=== PATIENT | female | born 1995 | race Caucasian/White ===

== ENCOUNTER 2022-10-04 11:40 | Emergency (ER) | payer MEDICAID, SELFPAY ==
--- NOTE | ~2022-10-04 | XR_ITS ---
EXAMINATION: XR ANKLE, RIGHT CLINICAL INFORMATION: Question injury COMPARISON: None TECHNIQUE: AP, lateral, and mortise views of the right ankle. FINDINGS: No acute fractures are seen. The ankle mortise is congruent. Degenerative change along the mortise with osteophyte formation throughout. Small ankle joint effusion. The soft tissues are unremarkable. XR/XR ankle RT min 3V IMPRESSION: No acute fracture or malalignment. Small joint effusion. Degenerative change along the ankle mortise.
[2022-10-04 11:45] VITALS: BP 153/86; PULSE 126; RESP 18; TEMP 36.7; O2SAT 100; BMI 21.1
--- OUTSIDE RECORDS SUMMARY | 2022-10-04 12:23 | XMS_ITS | Continuity of Care Document ---
:1995 Author Organization [facility] Address [address] [place] [address]- Care Team Providers Name Role Phone Kimberley Cooper NP Primary Care Physician [phone] Encounter [facility] [id number] Date(s): 02/10/21 - 02/17/21 [facility] [address] [place] [id number]- Encounter Diagnosis ADHD (Discharge Diagnosis) - 02/10/21 Encounter to establish care (Discharge Diagnosis) - 02/10/21 Attending Physician: Kimberley Cooper NP Allergies, Adverse Reactions, Alerts Substance Reaction Severity Status NKA Active Medications Vyvanse = 40 mg, By Mouth, Daily in AM, 0 Refills, Maintenance, 02/10/21 9:53:00 EDT, Partial fill upon patient request if the prescription is for a schedule II opioid drug. Start Date: 02/10/21 Status: Ordered Problem List Condition Effective Dates Status Health Status Informant ADHD(Confirmed) Active Diagnosis Diagnosis Type Effective Dates Health Status Clinical In formant Service ADHD Discharge 02/10/21 Diagnosis Encounter to Discharge 02/10/21 establish care Diagnosis Social History Social History Type Response Smoking Status Never (less than 100 in life time) entered on: 02/10/21 Sex
--- OUTSIDE RECORDS SUMMARY | 2022-10-04 12:23 | XMS_ITS | Continuity of Care Document ---
:1995 [facility] Address [address] [id number]- Care Team Providers Name Role Phone Kenneth ALBARRAN, Kimberley Snatamaria Primary Care Physician [id number] Date(s): [facility]/10/21 [email or web address] [address] [place] [address]- Attending Physician: Latisha Valentin Admitting Physician: Latisha Valentin Referring Physician: AdmLatisha blanco Allergies, Adverse Reactions, Alerts Substance Reaction Severity Status NKA Active Medications Vyvanse = 40 mg, By Mouth, Daily in AM, 0 Refills, Maintenance, 02/10/21 9:53:00 EDT, Partial fill upon patient request if the prescription is for a schedule II opioid drug. Start Date: 02/10/21 Status: Ordered Problem List Condition Effective Dates Status Health Status Informant ADHD(Confirmed) Active Social History Social History Type Response Smoking Status Never (less than 100 in life time) entered on: 02/10/21 Sex
--- NOTE | 2022-10-04 12:42 | ED_ITS ---
HPI - Extremity Injury (Lower) General Chief Complaint: Extremity Injury, Lower Stated Complaint: R ankle swollen, in pain Time Seen by Provider: 10/04/22 12:27 Source: patient Mode of arrival: ambulatory (personal crutches) Limitations: physical limitation (personal crutches) History of Present Illness HPI Narrative: Pt is a 27 y/o female with history of shattered R ankle in 2011 with some hardware removed in 2012, cc right ankle pain that started yesterday morning without known cause while walking. 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 Pain is 3/10 on rest. She has limited range of motion at baseline and it remains unchanged and denies any popping, cracking, or hearing anything with the pain. She said if there is any pressure placed on the lateral part of the ankle, it causes discomfort so she has avoided splinting it. She has not taken anything for pain and is using her own very old crutches. MD complaint: ankle injury Onset (ago): day(s) (1) Injury: Right: ankle Place: work Severity: mild Severity scale (1-10): 3 Exacerbating factors: weight bearing Context: walking Other symptoms: none Related Data Previous Rx's Medication Instructions Recorded acetaminophen 300 mg-codeine 30 mg 1 tab PO Q8H PRN pain #14 tabs 10/04/22 tablet ibuprofen 600 mg tablet 600 mg PO Q6H PRN fever #14 tabs 10/04/22 Allergies Allergy/AdvReac Type Severity Reaction Status Date / Time No Known Allergies Allergy Verified 10/04/22 11:52 Review of Systems Review of Systems: Constitutional : No Weight loss, No Fever, No Chills, No Night Sweats, No Fatigue, No Malaise ENT/Mouth : No Hearing loss, No Ear Pain, No Nasal Congestion, No Sinus Pain, No Hoarseness, No sore throat, No Rhinorrhea, No Swallowing Difficulty Eyes: No Eye Pain, No Swelling, No Redness, No Foreign Body, No Discharge, No Vision Changes Cardiovascular : No Chest Pain, No SOB, No Dyspnea on Exertion, No Orthopnea, No Edema, No Palpitations Respiratory : No Cough, No Sputum, No Wheezing, No Smoke Exposure, No Dyspnea Gastrointestinal : No Nausea, No Vomiting, No Diarrhea, No Constipation, No abdominal Pain, No Hematochezia, No Melena Genitourinary : no irregular bleeding, No Dysuria, No Urinary Frequency, No Hematuria, No Urinary Incontinence, No Urgency, No Flank Pain, No Urinary Flow Changes, No Hesitancy Musculoskeletal : +R ankle pain/swelling, No other joint pain, No Myalgias Skin : No Skin Lesions, No rash Neuro : No Weakness, No Numbness, No Paresthesias, No Loss of Consciousness, No Dizziness, No Headache Psych : No Anxiety/Panic, No Depression, No SI/HI/AH/VH, No Social Issues, Heme/Lymph: No Bruising, No Bleeding,No Lymphadenopathy Endocrine : No Polyuria, No Polydipsia, No Temperature Intolerance Yes all other systems are reviewed and are negative [facility] Past Medical History Attestation statement: The following information was validated with the patient. Source: old records reviewed, obtained from family and nursing notes reviewed Social History Social History Advance Directives: No Physical Exam Vital Signs: Vital Signs: Last Vital Signs Temp 98.1 F 10/04/22 11:45 Pulse 126 H 10/04/22 11:45 Resp 18 10/04/22 11:45 BP 153/86 H 10/04/22 11:45 Pulse Ox 100 10/04/22 11:45 O2 Del Method 10/04/22 11:45 BMI result Body Mass Index 21.1 Vital signs reviewed. Blood pressure 153/86. Pulse 126. Respiration normal. Oxygen normal. Temperature normal. Appearance: Alert. Oriented X3. No acute distress. Head: Normal external exam. Normocephalic. Atraumatic. Eyes: PERRLA. EOMI. Conjunctiva and sclera normal. Eyelids normal. ENT: EAC normal. TM's Normal. Pharynx normal. Uvula midline. Moist mucous membranes. No lesions/ulcerations or masses noted on the tongue. Normal voice. No trismus noted. No drooling noted. No muffled voice noted. Neck: Normal inspection. Neck supple. FROM. No adenopathy. Thyroid Normal. No meningeal signs. CVS: Normal heart rate and rhythm. Heart sound normal. Pulses normal throughout. No murmurs/rales/gallops. Respiratory: No respiratory distress. Painless inspiration. Breath sounds normal. No wheezes/rales/rhonchi noted. Chest nontender. No accessory muscle usage noted or decreased air movement noted. Abdomen: Soft and nontender. Back: Full range of motion noted. Nontender. Skin: Skin warm and dry. Normal skin color. Normal skin turgor. No rashes/lesions/lacerations noted. Extremities: baseline right ankle larger than right with TTP to right lateral aspect malleolus with soft tissue swelling/joint effusion. Patient has full range of motion of the right ankle/foot joint. No obvious ligamentous or tendon injury noted. Otherwise all other Extremities exhibit normal range of motion with no swelling or edema. No pitting edema. No calf tenderness is noted. Neuro: Oriented X 3. No motor deficit. No sensory deficit. Reflexes normal. Normal steady gait. No focal neuro deficits noted. CN's II-XII intact bilatera lly? Vascular: + radial pulses. Normal cap refill. No cyanosis noted to upper extremity nails Medical Decision Making Medical Decision Making MDM Narrative: This 27-year-old female patient presents with right ankle and lateral pain mid calf pain, suspicious for sprain or possible tendonitis. Able to flex and extend without pain and does have baseline limited ROM. Considered but doubt tibial/fibular fractures, septic arthritis, other acute unstable fracture, compartment syndrome, or significant neurovascular compromise. Patient does not have any lower extremity edema or calf tenderness. Not consistent with DVT. Patient was noted to be tachycardic although reports she has anxiety and this usually happens when she is in a hospital. Plan: Xray shows no fracture, discharge with new crutches and disc of films, pt instructed to follow-up with ortho at a later date. Patient understands agrees with this plan. Independent Interpretation I performed an independent interpretation of an: Plain X-Ray (Ankle x-ray reviewed by myself agreeable radiologist report) Radiology Impression Discussion of test interpretation with radiology: I have reviewed the radiologist's reading. Radiologist Impression: EXAMINATION: XR ANKLE, RIGHT CLINICAL INFORMATION: Question injury? COMPARISON: None? TECHNIQUE: AP, lateral, and mortise views of the right ankle. FINDINGS: No acute fractures are seen. The ankle mortise is congruent. Degenerative change along the mortise with osteophyte formation throughout. Small ankle joint effusion. The soft tissues are unremarkable.? XR/XR ankle RT min 3V IMPRESSION: No acute fracture or malalignment. Small joint effusion. Degenerative change along the ankle mortise. Independent Historian Clinical information obtained from an independent historian. History obtained from or confirmed by: Friend Prescription Management I considered prescription management with: Pain Medication (Patient given pain medication for symptomatic relief and was placed in Ari wrap) Discharge Plan Discharge Clinical Impression: Sprain of ankle, right, Ankle joint effusion Patient Disposition: Home, Self-Care Instructions: Ankle Sprain (ED), Swollen Ankle Joint (ED) Prescriptions: New acetaminophen-codeine 300-30 mg tablet 1 tab PO Q8H PRN (Reason: pain) Qty: 14 0RF ibuprofen 600 mg tablet 600 mg PO Q6H PRN (Reason: fever) Qty: 14 0RF Referrals: [facility] [place] [facility] [Provider Group] (You can call to make a follow-up appointment within the next few weeks if you have persistent pain to your right ankle) Interventions: ED Discharge Assessment Last Done: 10/04/22 13:54 Discharge Date/Time: 10/04/22 13:55
== END 2022-10-04 13:55 | disposition home or self-care (01) ==
PROVIDERS: Emergency Provider Emergency Medicine
DX: M25.471 Effusion, right ankle (principal); S93.401A Sprain of unspecified ligament of right ankle, initial encounter; X58.XXXA Exposure to other specified factors, initial encounter; Y93.9 Activity, unspecified; Y92.9 Unspecified place or not applicable; Y99.9 Unspecified external cause status
CPT/HCPCS: 73610; 99282; 99283